=== PATIENT | female | born 1975 | race Hispanic/Latino ===

== ENCOUNTER 2018-09-11 11:16 | Outpatient (CLI) | payer MEDICAID ==
--- NOTE | 2018-09-11 15:04 | Ultrasound Report ---
RENAL ULTRASOUND: 09/11/18 CLINICAL: Renal calculus. History of a left renal stent. left flank pain. FINDINGS: High resolution ultrasound demonstrated normal overall echogenicity of the kidneys. The right kidney measures 13.0 x 6.5 x 6.5-cm. The renal parenchyma measures 1.6-cm in thickness.Right upper pole renal cysts measure 1.4 x 1.3 x 1.3 cm and 1.2 x 1.2 x 1.1 cm. A right lower pole cyst with septation measures 1.3 x 1.2 x 1.1 cm. No right renal mass or calculus. The right renal collecting system and ureter are nondilated. Incidentally, the liver is diffusely echogenic. The left kidney measures 12.4 x 4.8 x 5.9-cm. The renal parenchyma measures 1.0-cm in thickness. The left renal collecting system appears duplicated and the lower pole moiety is mildly dilated.. A 9 mm echogenic non-shadowing focus in the midportion of the left kidney and a 5 mm echogenic non-shadowing focus in the lower pole the left kidney. No left renal mass or calculus. A normal urinary bladder with moderate distention. IMPRESSION: 1. Benign right renal cysts and no right renal calculus. 2. 2 echogenic foci in the left kidney are probably non-shadowing calculi in the midportion of the kidney in the lower pole. 3. No hydronephrosis.
== END 2018-09-11 11:17 | disposition home or self-care (01) ==
LOC: SPVWC 11:16
PROVIDERS: ATTEND Urology
DX: N28.1 Cyst of kidney, acquired (principal); K21.9 Gastro-esophageal reflux disease without esophagitis; E11.9 Type 2 diabetes mellitus without complications; Z87.891 Personal history of nicotine dependence
CPT/HCPCS: 76770

== ENCOUNTER 2018-11-16 08:55 | Day surgery (SDC) | payer MEDICAID ==
--- NOTE | 2018-11-16 09:45 | Anesthesia Day of Surgery ---
Anesthesia Day of Surgery - Day of Surgery Patient Examined: Yes Patient H&P Reviewed: Yes Patient is NPO: Yes
--- NOTE | 2018-11-16 09:45 | Anesthesia Consultation ---
Anesthesia Consult and Med Hx Date of service: 11/16/18 - Airway Anesthetic Teeth Evaluation: Poor Mallampati Class: Class II Intubation Access Assessment: Probably Good - Pulmonary Exam CTA: Yes - Cardiac Exam Cardiac Exam: RRR - Pre-Operative Health Status ASA Pre-Surgery Classification: ASA3 Proposed Anesthetic Plan: General - Pulmonary Hx Smoking: Yes (1 PPD X 20 YRS) COPD: Yes (early) Home Oxygen Therapy: No Hx Sleep Apnea: No (CELINA PRE SCREEN LOW RISK.) - Cardiovascular System Hx Hypertension: No - Central Nervous System Hx Psychiatric Problems: Yes (TAKES MEDS FOR NIGHTMARES) - Gastrointestinal Hx Gastroesophageal Reflux Disease: Yes (joint terminal attack controller, zantac 11/16/18) - Endocrine Hx Non-Insulin Dependent Diabetes: Yes (pre diabetic) - Other Systems Hx Cancer: No
[2018-11-16] MEDS ORDERED: LEVAQUIN 250MG/50ML 250 MG/50 ML BAG IV NR (10:00)
[2018-11-16] MEDS ORDERED: VERSED IV NR (10:00)
[2018-11-16] MEDS ORDERED: LACTATED RINGERS 1,000 ML IV SCH (10:00)
[2018-11-16] MEDS ORDERED: XYLOCAINE MPF 2% ONE (10:01)
[2018-11-16] MEDS ORDERED: DIPRIVAN 10 MG/ML IV ONE (10:01)
[2018-11-16] MEDS ORDERED: DECADRON ONE (10:01)
[2018-11-16] MEDS ORDERED: ZOFRAN ONE (10:01)
[2018-11-16] MEDS ORDERED: SUBLIMAZE ONE (10:01)
--- NOTE | 2018-11-16 11:05 | Post Operative Note ---
Date of procedure: 11/16/18 Pre-op diagnosis: l stone Post-op diagnosis: same Findings: as above Procedure: LESWL Anesthesia: GETA Surgeon: MASTER MAYER Estimated blood loss: none Pathology: none Condition: stable Disposition: PACU
--- NOTE | 2018-11-16 11:06 | Discharge Summary ---
Short Stay Discharge Plan Activity: other (no straining ) Weight Bearing Status: Full Weight Bearing Diet: low fat, low cholesterol, low salt Special Instructions: other (inc fluids ) Follow up with: CARMEL GILL NP [Primary Care Provider] - 7 Days BESSY HORN MD [Staff Physician] - 7 Days
--- NOTE | 2018-11-16 12:36 | Operative Report ---
PREOPERATIVE DIAGNOSIS: Left renal stone. POSTOPERATIVE DIAGNOSIS: Left renal stone. PROCEDURE: In situ left lithotripsy. SURGEON: Reynold Brian M.D. ANESTHESIA: General. FINDINGS: This is a woman who has a prominent stone 6 mm left kidney. She now presents for left lithotripsy. All risks and implications discussed. DESCRIPTION OF PROCEDURE: The patient was brought to lithotripsy and placed on the table. Following induction of anesthesia, stone was easily localized both the AP and oblique image. Shocks were begun at 1 kV, increased to maximum of 7 kV. A total of 2500 shocks were given. It looked like there was excellent fragmentation. The patient tolerated the procedure well. No stent or cystoscopy was performed. Again 2500 shocks were given, brought to recovery in stable condition. JOB# [id number] PAT/AZEB
[2018-11-16] MEDS ORDERED: PERCOCET 5/325 PO PRN (12:49)
[2018-11-16] MEDS ORDERED: PERCOCET 5/325 ONE (12:54)
[2018-11-16 14:08] VITALS: BP 123/64
--- NOTE | 2018-11-17 08:42 | Post Anesthesia Evaluation ---
- Post Anesthesia Evaluation Patient Participated: Yes Airway Patent: Yes Stable Respiratory Function: Yes Nausea/Vomiting: No Temp > 96.8F: Yes Pain Manageable: Yes Adequeate Hydration: Yes Anesthesia Complications: No Block Receding Appropriately: Not Applicable Patient on Ventilator: No
== END 2018-11-16 13:50 | disposition home or self-care (01) ==
LOC: OR 08:55
PROVIDERS: ATTEND Urology
DX: N20.0 Calculus of kidney (principal); E78.00 Pure hypercholesterolemia, unspecified; J44.9 Chronic obstructive pulmonary disease, unspecified; K21.9 Gastro-esophageal reflux disease without esophagitis; E11.9 Type 2 diabetes mellitus without complications; F32.9 Major depressive disorder, single episode, unspecified; F17.210 Nicotine dependence, cigarettes, uncomplicated; F41.9 Anxiety disorder, unspecified; Z98.890 Other specified postprocedural states; Z79.899 Other long term (current) drug therapy; Z88.8 Allergy status to other drugs, medicaments and biological substances; Z87.440 Personal history of urinary (tract) infections
CPT/HCPCS: 50590; 81025; J1100; J1956; J2250; J2405; J2704; J3010; J7120